=== PATIENT | male | born 1980 ===

== ENCOUNTER 2017-01-17 20:07 | Emergency (ER) | payer OTHER ==
[2017-01-17 20:23] VITALS: BP 132/97
--- NOTE | 2017-01-17 20:47 | UC ---
Knee Pain HPI - HPI Summary HPI Summary: [employer], HAD SHARP PAIN BEHIND RIGHT KNEE WELL RIGHT CALF PAIN, WITH MILD SHORTNESS OF BREATH, NO CHEST PAIN. NO TRAUMA. 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 Onset/Duration: Sudden Onset, Lasting Hours, Still Present Severity Initially: Severe Severity Currently: Moderate Character: Sharp, Aching Aggravating Factor(s): Movement, Nothing - TOUCH Alleviating Factor(s): Nothing Associated Signs And Symptoms: Negative: Swelling, Redness, Bruising, Numbness, Tingling Able to Bear Weight: Yes - Risk Factors Septic Arthritis Risk Factor: Negative - Allergies/Home Medications Allergies/Adverse Reactions: Allergies Allergy/AdvReac Type Severity Reaction Status Date / Time No Known Allergies Allergy Verified 01/17/17 20:23 Home Medications: Home Medications NK [No Home Medications Reported] 01/17/17 [History Confirmed 01/17/17] PMH/Surg Hx/FS Hx/Imm Hx Previously Healthy: Yes - Surgical History Surgical History: None - Family History Known Family History: Positive: Respiratory Disease - Social History Lives: With Family Alcohol Use: Occasionally Substance Use Type: Marijuana Substance Use Comment - Amount & Last Used: occ usage Smoking Status (MU): Heavy Every Day Tobacco Smoker Type: Cigarettes Amount Used/How Often: 1 ppd Length of Time of Smoking/Using Tobacco: since age 18 Have You Smoked in the Last Year: Yes Review of Systems Constitutional: Negative Skin: Negative Eyes: Negative ENT: Negative Respiratory: Shortness Of Breath - MILD Cardiovascular: Negative Gastrointestinal: Negative Genitourinary: Negative Motor: Negative Neurovascular: Negative Musculoskeletal: Arthralgia, Calf Tenderness, Edema, Myalgia Neurological: Negative Psychological: Negative All Other Systems Reviewed And Are Negative: Yes Physical Exam Triage Information Reviewed: Yes Appearance: Well-Appearing, Well-Nourished, Pain Distress Vital Signs: Initial Vital Signs Temp 99.1 F 01/17/17 20:15 Pulse 77 01/17/17 20:15 Resp 16 01/17/17 20:15 BP 132/97 01/17/17 20:15 Pulse Ox 100 01/17/17 20:15 Vital Signs Reviewed: Yes Eye Exam: Normal ENT Exam: Normal ENT: Positive: Normal ENT inspection, Hearing grossly normal, Pharynx normal, TMs normal Dental Exam: Normal Neck exam: Normal Neck: Positive: Supple, Nontender, No Lymphadenopathy Respiratory Exam: Normal Respiratory: Positive: Chest non-tender, Lungs clear, Normal breath sounds, No respiratory distress Cardiovascular Exam: Normal Cardiovascular: Positive: RRR, No Murmur Abdominal Exam: Normal Abdomen Description: Positive: Nontender, No Organomegaly Musculoskeletal Exam: Normal Musculoskeletal: Positive: Strength Intact, ROM Intact, No Edema, Other: - POSITIVE HOMANS RIGHT CALF Neurological Exam: Normal Psychological Exam: Normal Skin Exam: Normal Knee Pain Course/Dx - Course Course Of Treatment: PATIENT REFUSED AMBULANCE. TO GO BY PRIVATE CAR TO [facility] FOR R/O DVT. - Differential Dx/Diagnosis Differential Diagnosis/HQI/PQRI: DVT, Internal Derangement Of Knee Provider Diagnoses: RIGHT KNEE/CALF PAIN - Physician Notifications Discussed Patient Care With: ASHIA RAGSDALE Time Discussed With Above Provider: 20:35 Instructed by Provider To: MD Will See In ED Discharge - Discharge Plan Condition: Stable Disposition: TRANS HIGHER L OF CARE FAC
== END 2017-01-17 21:05 | disposition left against medical advice (07) ==
LOC: UCCORT 20:07
DX: M79.661 Pain in right lower leg (principal); F17.210 Nicotine dependence, cigarettes, uncomplicated
CPT/HCPCS: 99212; G0463